=== PATIENT | male | born 1965 | race Caucasian/White ===

== ENCOUNTER 2017-07-04 15:38 | Emergency (ER) | payer MEDICAID ==
[~2017-07-04] VITALS: Ht 167.6 cm; Wt 95.5 kg
[~2017-07-04 15:38] MED LIST: HYDR-762 PO; IBUP-1542 PO; IBUP800T25 PO; ONDA4TAB35 PO; TRAM50TA2 PO
[2017-07-04 15:41] VITALS: Ht 167.6 cm; Wt 95.5 kg
[2017-07-04] MEDS ORDERED: KETOROLAC 60 MG INJ IM STA (16:15)
[2017-07-04] MEDS ORDERED: IBUP-1542 PO (16:21)
[2017-07-04] MEDS ORDERED: ACET500C5 PO (16:21)
[2017-07-04] MEDS ORDERED: MECL12.574 PO (16:21)
--- NOTE | 2017-07-04 16:31 | ERD ---
ER Documentation Chief Complaint Date/Time DATE: 07/04/17 TIME: 16:24 Chief Complaint Complains of a headache x 3 days HPI 52-year-old male complaining of headache in the occipital area. Patient stated that he has headache almost daily for the last week. He will have 2-3 episodes of headache per day. The current one has lasted about 3 hours. Patient also complaining of dizziness. Described dizziness as spinning-like sensation when he is moving. He had vomited once 3 days ago. He also reports his hearing was muffled yesterday on the left. Denies fever or chills. Denies photophobia or phonophobia. Denies vision changes. Denies abdominal pain. Patient reports a history of head injury 1 year ago. ROS All systems reviewed and are negative except as per history of present illness. Medications Home Meds Active Scripts Meclizine Hcl* (Antivert*) 12.5 Mg Tab, 12.5 MG PO Q6H Y for DIZZINESS, #20 TAB Prov:NAVA PIERRE NP 07/04/17 Acetaminophen* (Tylophen*) 500 Mg Capsule, 1 CAP PO Q6H Y for PAIN AND OR ELEVATED TEMP, #20 CAP Prov:NAVA PIERRE NP 07/04/17 Ibuprofen* (Motrin*) 600 Mg Tab, 600 MG PO Q6H Y for PAIN AND OR ELEVATED TEMP, #30 TAB Prov:NAVA PIERRE NP 07/04/17 Ibuprofen* (Motrin*) 600 Mg Tab, 600 MG PO Q6H Y for PAIN AND OR ELEVATED TEMP, #30 TAB Prov:HARMONY LUI NP 07/12/16 Tramadol HCl (Tramadol HCl) 50 Mg Tablet, 50 MG PO Q6 Y for SEVERE PAIN LEVEL 7- 10, #20 TAB Prov:HARMONY LUI NP 07/12/16 Ibuprofen* (Motrin*) 800 Mg Tab, 800 MG PO Q6H Y for PAIN AND OR ELEVATED TEMP, #30 TAB Prov:OWEN WADE MD 06/27/16 Ondansetron Hcl* (Zofran* ODT) 4 mg -ODT Tab.disper, 4 MG PO Q6 Y for NAUSEA AND /OR VOMITING, #30 TAB Prov:OWEN WADE MD 06/27/16 Hydrocodone Bit-Acetaminophen* ([place]*) 10-325 Mg Tablet, 1 TAB PO Q6 Y for PAIN , #12 TAB Prov:OWEN WADE MD 06/27/16 Allergies Allergies: Coded Allergies: Penicillins (Verified Allergy, Unknown, 06/27/16) PMhx/Soc History of Surgery: No Anesthesia Reaction: No Hx Neurological Disorder: No Hx Respiratory Disorders: No Hx Cardiac Disorders: No Hx Psychiatric Problems: No Hx Miscellaneous Medical Probl: No Hx Alcohol Use: No Hx Substance Use: No Hx Tobacco Use: No Smoking Status: Never smoker Physical Exam Vitals Vital Signs Date Time Temp Pulse Resp B/P Pulse Ox O2 Delivery O2 Flow Rate FiO2 07/04/17 15:41 98.5 68 20 144/86 96 Physical Exam General: Well-developed, well-nourished, conscious and coherent, in no distress Skin: Warm and dry without rash, good texture and turgor Head: Normocephalic without evidence of trauma Eyes: Sclera and conjunctivae normal; pupils equal, round, and reactive to light; extraocular movements are intact. Horizontal nystagmus to the right. Ears: Canals are patent. Tympanic membranes are clear Neck: Supple without meningismus or adenopathy. Carotids are equal. Trachea midline. No bruits or JVD Chest: Normal AP diameter. Good expansion without retractions. Nontender. Lungs are clear to auscultate bilaterally with good tidal volume Heart: Regular rate and rhythm. No murmur, rub, or gallops heard Extremities: Full range of motion. Good strength bilaterally. No clubbing, cyanosis, or edema. Peripheral pulses are intact. Sensation intact Neuro: Alert and oriented 4, GCS 15. Cranial nerves grossly intact. Motor and sensory exams nonfocal. Moves all extremities. Speech clear. Gait normal Results 24 hrs Current Medications Medications (Trade) Dose Ordered Sig/Florencio Route PRN Reason Start Time Stop Time Status Last Admin Dose Admin Ketorolac Tromethamine (Toradol) 60 mg ONCE STAT IM 07/04/17 16:15 07/04/17 16:17 DC 07/04/17 16:25 Procedures/MDM Well-appearing 52-year-old male present ED was headache on and off 1 week. Based on patient history, I suspect the headache is a cluster type. Differentials include but not limited to migraine, cluster headache, tension headache, sinus or dental infection, TMJ syndrome, pseudotumor cerebri, meningitis, encephalitis, giant cell arteritis, glaucoma, subarachnoid hemorrhage, subdural or epidural hematoma, intracranial bleeding or tumor. Patient also reports vertigo. I suspect benign positional vertigo versus Mni re's disease. Low suspicion for central causes of vertigo. Patient given instructions to perform self Franck maneuver at home. Patient given Toradol 60 mg IM and O2 2 L via nasal cannula in the ED. his headache resolved after treatment. Patient appears well, stable for discharge and outpatient management. Medical decision making shared with patient and family. Education provided to patient and family. Patient and family expressed understanding of the plan. Medications on discharge: Tylenol, ibuprofen, meclizine. Follow-up: Primary care provider in 2-3 days or return to ED if worse. Disclaimer: Inadvertent spelling and grammatical errors are likely due to EHR/ dictation software use and do not reflect on the overall quality of patient care. Also, please note that the electronic time recorded on this note does not necessarily reflect the actual time of the patient encounter. Departure Diagnosis: Primary Impression: Headache Headache type: cluster Headache chronicity pattern: unspecified pattern Intractability: not intractable Qualified Code: G44.009 - Cluster headache, not intractable, unspecified chronicity pattern Additional Impression: Vertigo Condition: Stable Patient Instructions: Self-Care for Headaches, Vertigo, Unspecified [facility] Usted se burr hecho un examen mdico de control que le indica que no est en dimitry condicin que requiera tratamiento urgente en el Departamento de Emergencia. Un estudio ms profundo y el tratamiento de miranda condicin pueden esperar sin ningn riesgo hasta que usted sea atendida/o en el consultorio de miranda mdico o dimitry cl david. Es responsabilidad suya arreglar dimitry joseph para el seguimiento del alex. MANEJO DE CONDICIONES NO URGENTES EN EL FUTURO 1) Si usted tiene un mdico de atencin primaria: Usted debera llamar a miranda mdico de atencin primaria antes de venir al departamento de emergencia. Despus de las horas de consultorio, miranda doctor o miranda asociado/a est disponible por telfono. El mdico o enfermero de venice en el servicio telefnico puede asesorarle por isa medio para atender el problema, o alex contrario se puede programar dimitry joseph. 2) Si usted no tiene un mdico de atencin primaria: Llame al mdico o clnica de referencia que aparece abajo natalya las horas de consultorio para hacer dimitry joseph para que le vean. CLINICAS: [place] [id number] [phone] [facility] [phone] [place] [id number] [phone] [place] [address] [phone] [facility] [address] [place] [address] [phone] [facility] [phone] Additional Instructions: Llame al doctor MAANA y carroll dimitry JOSEPH PARA DENTRO DE 2-3 GARRISON.Dgale a la secretaria que nosotros le instruimos hacer esta ojseph.Avise o llame si miranda condicin se empeora antes de la joseph. Regresa aqui si peor o no mejor. NAVA PIERRE NP Jul 04, 2017 16:31
== END 2017-07-04 17:08 | disposition home or self-care (01) ==
LOC: FTE 15:38
DX: G44.009 Cluster headache syndrome, unspecified, not intractable (principal); R42 Dizziness and giddiness
CPT/HCPCS: 96372; J1885; Z7502

== ENCOUNTER 2019-07-15 15:16 | Emergency (ER) | payer MEDICAID ==
[~2019-07-15] VITALS: Ht 170.2 cm; Wt 96.5 kg
[~2019-07-15 15:16] MED LIST changes: +ACET500C5 PO; +CPR3OO3.5 RIGHT EYE; +DICL2.5D11 RIGHT EYE; -IBUP800T25 PO; +IBUP800T48 PO; +MECL12.574 PO
[2019-07-15 15:20] VITALS: BP 154/89; PULSE 70; RESP 20; Ht 170.2 cm; Wt 96.5 kg
[2019-07-15] MEDS ORDERED: TETRACAINE 0.5% 4 ML OPH RIGHT EYE ONE (16:00)
[2019-07-15] MEDS ORDERED: FLUORESCEIN STRIP RIGHT EYE ONE ×2 (16:00)
== END 2019-07-15 19:27 | disposition home or self-care (01) ==
LOC: FTE 15:16
DX: S05.01XA Injury of conjunctiva and corneal abrasion without foreign body, right eye, initial encounter (principal); W27.0XXA Contact with workbench tool, initial encounter; Y92.9 Unspecified place or not applicable
CPT/HCPCS: 70480; 76536; Z7502; Z7610